=== PATIENT | female | born 1935 | race Caucasian/White ===

== ENCOUNTER 2016-09-13 22:14 | Emergency (ER) | payer MEDICARE, OTHER ==
[~2016-09-13 22:14] MED LIST: ACETAMINOPHEN325 M2 PO; ALEVE220 M1 PO; ALEVE220 M3 PO; ALEVE220 M4 PO; ASPIR 8181 M1 PO; ASPIRIN LOW STR81 MG PO; ASPIRIN325 M3 PO; ASPIRIN325 MG PO; BIOTIN5 MG PO; CALCIUM500 M1 PO; CALCIUM500 M3 PO; CINNAMON500 MG PO; CIPRO500 M2 PO; COMPETE1 EACH PO; CRANBERRY500 M PO; LIDODERM700 MG TP; MAGNESIUM400 MG PO; MOBIC15 M2 PO; MULTIVITAMIN W/1 TA PO; OMEGA 3 1,0001 EAC1 PO; OMEGA 3 1,0001 EACH PO; OMEPRAZOLE MAGN20 M1 PO; PREMARIN0.3 MG PO; PREMARIN0.3 MG/TAB PO; REQUIP5 M1 PO; REQUIP5 MG PO; ROXICODONE5 M2 PO; SYSTANE ULTRA 010 M1 EACH EYE; TRAMADOL HCL50 MG PO; TUMS500 M1 PO; TYLENOL TA325 MG/TA2 PO; ULTRAM50 M1 PO; VESICARE10 M1 PO; VITAMIN D32000 UNI1 PO; VITAMIN D35000 UNI3 PO; ZYRTEC10 MG PO
[2016-09-13 23:13] LABS: BASO % 0.3 % (0-2); EOS % 1.6 % (0-7); EOSINOPHIL ABSOLUTE COUNT 0.1 tho/cmm (0.0-0.7); HCT-HEMATOCRIT 33.8 % (34.0-49.0); HGB-HEMOGLOBIN 10.9 gm/dl (12.0-15.5); LYMPH % 12.7 % (20-45); LYMPH ABSOLUTE COUNT 0.9 tho/cmm (0.8-4.5); MCH (MEAN CORPUSCULAR HGB) 27.9 pg (28.0-32.0); MCHC MEAN CORPUSCULAR HGB CONC 32.2 % (32.0-36.0); MCV (MEAN CELL VOLUME) 86.4 fl (82.0-96.0); MONO % 8.5 % (0-12); MONOCYTE ABSOLUTE COUNT 0.6 tho/cmm (0.0-1.2); NEUTROPHIL ABSOLUTE COUNT 5.3 tho/cmm (1.6-8.0); NEUTROPHIL-AUTOMATED 5.3 tho/cmm (1.6-8.0); NEUTROPHILS % 76.9 % (40-80); PLATELET COUNT 232 tho/cmm (150-450); RED BLOOD COUNT 3.91 mil/cmm (4.00-5.20); RED CELL DISTRIBUTION WIDTH 15.4 % (12.4-16.4); WHITE BLOOD COUNT 6.8 tho/cmm (4.0-10.0)
[2016-09-13 23:28] LABS: ALB/GLOB RATIO 0.9 (0.8-2.0); ALBUMIN 3.4 g/dl (3.5-5.0); ALKALINE PHOSPHATASE 82 U/L (33-138); ALT/SGPT 24 U/L (12-78); ANION GAP 11 mmol/L (0-20); AST/SGOT 24 U/L (10-40); BILIRUBIN,TOTAL 0.4 mg/dl (0-1.5); BLOOD UREA NITROGEN 23 mg/dl (6-24); CALCIUM 8.7 mg/dl (8.5-10.5); CARBON DIOXIDE-VENOUS 25 mmol/L (22-32); CHLORIDE 108 mmol/l (96-110); CREATININE 0.56 mg/dl (0.50-1.10); GLUCOSE 114 mg/dL (70-110); POTASSIUM 3.3 mmol/L (3.7-5.1); SODIUM 141 mmol/L (135-145); eGFR VALUE FOR BLACK >90 mL/Min
[2016-09-14 00:41] LABS: URINE BILIRUBIN NEGATIVE (NEG); URINE BLOOD SMALL (NEG); URINE GLUCOSE (UA) NEGATIVE (NEG); URINE KETONE NEGATIVE (NEG); URINE LEUKOCYTE ESTERASE POSITIVE (NEG); URINE NITRITE POSITIVE (NEG); URINE PROTEIN SMALL (NEG)
[2016-09-14 00:49] LABS: URINE APPEARANCE HAZY; URINE COLOR YELLOW
[2016-09-14 00:51] LABS: URINE BACTERIA 4+; URINE EPITHELIAL CELLS RARE /[HPF] (0-10); URINE RBC 0-3 /[HPF] (0-5)
[2016-09-14] MEDS ORDERED: CIPRO500 M2 PO (01:36)
[2016-09-14] MEDS ORDERED: COLACE100 M1 PO (01:36)
[2016-09-14] MEDS ORDERED: NORCO 5/3251 TAB PO (01:36)
== END 2016-09-14 02:19 ==
LOC: EDMED 22:14
PROVIDERS: Emergency Medicine
DX: N13.6 Pyonephrosis (principal); K21.9 Gastro-esophageal reflux disease without esophagitis; Z90.710 Acquired absence of both cervix and uterus; Z90.49 Acquired absence of other specified parts of digestive tract; Z88.2 Allergy status to sulfonamides; Z79.899 Other long term (current) drug therapy
CPT/HCPCS: J0696; J2270; J7030

== ENCOUNTER 2016-10-15 21:41 | Observation (INO) | payer MEDICARE, OTHER ==
[~2016-10-15 21:41] MED LIST changes: +COLACE100 M1 PO; +NORCO 5/3251 TAB PO
[2016-10-15 22:34] LABS: BASO % 0.4 % (0-2); EOS % 1.3 % (0-7); EOSINOPHIL ABSOLUTE COUNT 0.1 tho/cmm (0.0-0.7); HCT-HEMATOCRIT 36.3 % (34.0-49.0); HGB-HEMOGLOBIN 11.8 gm/dl (12.0-15.5); IMMATURE GRANULOCYTES ABSOLUTE 0.01 tho/cmm (0-0.03); IMMATURE GRANULOCYTES PERCENT 0.1 % (0-0.3); LYMPH % 14.1 % (20-45); MCHC MEAN CORPUSCULAR HGB CONC 32.5 % (32.0-36.0); MCV (MEAN CELL VOLUME) 86.2 fl (82.0-96.0); MONO % 8.1 % (0-12); MONOCYTE ABSOLUTE COUNT 0.6 tho/cmm (0.0-1.2); NEUTROPHIL ABSOLUTE COUNT 5.3 tho/cmm (1.6-8.0); NEUTROPHIL-AUTOMATED 5.3 tho/cmm (1.6-8.0); PLATELET COUNT 249 tho/cmm (150-450); RED BLOOD COUNT 4.21 mil/cmm (4.00-5.20); RED CELL DISTRIBUTION WIDTH 14.8 % (12.4-16.4)
[2016-10-15 22:43] LABS: PROTHROMBIN TIME 11.1 SECONDS (9.0-13.6)
[2016-10-15 22:53] LABS: ALBUMIN 3.5 g/dl (3.5-5.0); ALKALINE PHOSPHATASE 101 U/L (33-138); ALT/SGPT 18 U/L (12-78); ANION GAP 12 mmol/L (0-20); AST/SGOT 17 U/L (10-40); BILIRUBIN,TOTAL 0.2 mg/dl (0-1.5); BLOOD UREA NITROGEN 22 mg/dl (6-24); CARBON DIOXIDE-VENOUS 26 mmol/L (22-32); CHLORIDE 109 mmol/l (96-110); CREATININE 0.62 mg/dl (0.50-1.10); GLUCOSE 119 mg/dL (70-110); POTASSIUM 4.1 mmol/L (3.7-5.1); SODIUM 143 mmol/L (135-145); eGFR VALUE FOR BLACK >90 mL/Min
[2016-10-17] MEDS ORDERED: NORCO 5-325 TA1 EACH PO (13:05)
[2016-10-17] MEDS ORDERED: TYLENOL325 M2 PO (13:07)
[2016-10-17] MEDS ORDERED: FISH OIL 11000 MG/CA PO (13:11)
== END 2016-10-17 14:00 ==
LOC: EDMED 21:41 → EMR2 10-16 00:56 → 5EB 10-16 01:25
PROVIDERS: Emergency Medicine; ADMIT Family Medicine
DX: G89.29 Other chronic pain (principal); M54.5 Low back pain; M41.9 Scoliosis, unspecified; M48.06 Spinal stenosis, lumbar region; M47.816 Spondylosis without myelopathy or radiculopathy, lumbar region; Z79.1 Long term (current) use of non-steroidal anti-inflammatories (NSAID); Z79.82 Long term (current) use of aspirin; Z79.899 Other long term (current) drug therapy; Z88.2 Allergy status to sulfonamides; Z90.710 Acquired absence of both cervix and uterus; Z96.653 Presence of artificial knee joint, bilateral; Z98.890 Other specified postprocedural states
CPT/HCPCS: G0378; G8978-GP-CJ; G8979-GP-CJ; G8980-GP-CJ; J1100; J1170; J2270